=== PATIENT | male | born 1970 | race African-American/Black ===

== ENCOUNTER 2020-03-23 18:28 | Emergency (ER) | payer OTHER ==
[~2020-03-23] VITALS: Ht 180.3 cm; Wt 87.1 kg
[2020-03-23 18:48] VITALS: Ht 180.3 cm; Wt 87.1 kg
[2020-03-23 20:06] VITALS: BP 135/87
== END 2020-03-23 20:06 | disposition home or self-care (01) ==
LOC: ED 18:28
DX: L25.9 Unspecified contact dermatitis, unspecified cause (principal)